=== PATIENT | female | born 1995 | race Caucasian/White ===

== ENCOUNTER 2021-12-29 05:30 | Inpatient (IN) | payer BC ==
[2021-12-29] MEDS ORDERED: Ondansetron PF 4 MG/2 ML Vial IVP PRN ×3 (05:46→16:32)
[2021-12-29] MEDS ORDERED: NS w/ Oxytocin 30 units 500 ML IV SCH ×2 (05:46)
[2021-12-29] MEDS ORDERED: Lidocaine 1% (PF) 30 ML VIAL SC PRN (05:46)
[2021-12-29] MEDS ORDERED: hydrALAZINE 20 MG/ML VIAL SLOW IVP PRN ×2 (05:46→16:32)
[2021-12-29] MEDS ORDERED: HYDROcodone/Acetaminophen 5/325 mg Tablet PO PRN ×4 (05:46→16:32)
[2021-12-29] MEDS ORDERED: Promethazine HCl 25 MG/ML VIAL IM PRN ×2 (05:46→10:47)
[2021-12-29] MEDS ORDERED: Ibuprofen 800 MG TAB PO PRN (05:46)
[2021-12-29 05:54] VITALS: BMI 27.8
[2021-12-29 06:31] LABS: Hemoglobin 11.5 g/dL (12.0-15.5); Mean Corpuscular HGB CONC 33.2 g/dL (32.0-36.0); Mean Corpuscular Hemoglobin 27.6 pg (27.0-33.0); Mean Corpuscular Volume 83.2 fl (81.6-98.3); Platelet Count 187 10x3/uL (150-450); RBC Distribution Width 16.4 % (11.5-14.5); Red Blood Cell (RBC) Count 4.16 10x6/uL (3.90-5.03); White Blood Cell (WBC) Count 9.6 10x3/uL (3.5-10.5)
[2021-12-29 06:54] LABS: Hep B Surf Ag Non-Reactive S/CO (NonReactive); Syphilis Antibody Nonreactive (Nonreactive); Syphilis Antibody Index 0.02 S/CO (<1.00 Non-Reactive)
[2021-12-29 06:57] LABS: HBSAg Index 0.18 S/CO (0-0.99)
[2021-12-29] MEDS ORDERED: Fentanyl 2 mcg/Bup 0.1% Cadd 100 ML ONE (07:21)
[2021-12-29] MEDS: Lactated Ringer's 1,000 ML IV SCH ×2 (08:02→15:45)
[2021-12-29] MEDS ORDERED: ePHEDrine Sulfate 50 MG/10 ML VIAL SLOW IVP PRN (10:47)
[2021-12-29] MEDS ORDERED: diphenhydrAMINE 50 MG/ML VIAL IVP PRN (10:47)
[2021-12-29] MEDS ORDERED: Naloxone HCl 0.4 mg/ml Vial IVP PRN ×2 (10:47)
[2021-12-29] MEDS ORDERED: Acetaminophen 325 MG TAB PO PRN (10:47)
[2021-12-29] MEDS ORDERED: Lactated Ringer's 500 ML IV PRN (10:47)
[2021-12-29] MEDS ORDERED: Moisturizing Cream (Eucerin) 113 GM JAR TOP PRN (10:47)
[2021-12-29] MEDS ORDERED: Fentanyl 2 mcg/Bupivacaine 0.1% Cassette 100 ML EPIDURAL SCH (11:00)
[2021-12-29] MEDS ORDERED: Communication Order-Pharmacy FS SCH (11:00)
[2021-12-29] MEDS ORDERED: Milk Of Magnesia 30 ML UDCUP PO PRN (16:32)
[2021-12-29] MEDS ORDERED: Bisacodyl 10 MG SUPP PR PRN (16:32)
[2021-12-29] MEDS ORDERED: Preparation H Ointment 28 GM TUBE PR PRN (16:32)
[2021-12-29] MEDS ORDERED: Lanolin Ointment 7 GM TUBE TOP PRN (16:32)
[2021-12-29] MEDS ORDERED: diphenhydrAMINE 25 MG CAP PO PRN (16:32)
[2021-12-29] MEDS ORDERED: Boostrix 0.5 ML (Tdap) VIAL IM ONE (16:32)
[2021-12-29] MEDS ORDERED: Benzocaine-Menthol 82.5 ML CAN TOP PRN (16:32)
[2021-12-29] MEDS: Ferrous Sulfate 325 MG TAB PO SCH (18:11)
[2021-12-29] MEDS: Ibuprofen 800 MG TAB PO SCH (18:32)
[2021-12-29] MEDS: Docusate 100 MG CAP PO SCH (20:30)
[2021-12-30] MEDS: Ibuprofen 800 MG TAB PO SCH ×3 (00:17→15:22)
[2021-12-30] MEDS: Docusate 100 MG CAP PO SCH (07:40)
[2021-12-30] MEDS: Ferrous Sulfate 325 MG TAB PO SCH (07:42)
[2021-12-30] MEDS ORDERED: Prenatal Vitamin 1 TAB PO SCH (09:00)
[2021-12-30 15:52] VITALS: BP 126/85; TEMP 97.8
== END 2021-12-30 16:40 | disposition home or self-care (01) | DRG 807 ==
LOC: CSHLD 05:35 → CSHPP 17:00
PROVIDERS: ADMIT Obstetrics & Gynecology; ATTEND Obstetrics & Gynecology
PROC: 10E0XZZ Delivery of Products of Conception, External Approach (ICD-10-PCS; principal; 2021-12-29)
PROC: 0HQ9XZZ Repair Perineum Skin, External Approach (ICD-10-PCS; 2021-12-29)
DX: O99.52 Diseases of the respiratory system complicating childbirth (principal); Z37.0 Single live birth; J45.909 Unspecified asthma, uncomplicated; Z3A.39 39 weeks gestation of pregnancy; Z86.16 Personal history of COVID-19; O70.0 First degree perineal laceration during delivery
CPT/HCPCS: 51702; 85027; 86780; 86850; 86900; 86901; 87340; J2405; J2590; J7120